=== PATIENT | male | born 1985 | race Caucasian/White ===

== ENCOUNTER 2016-10-11 02:45 | Emergency (ER) | payer OTHER ==
[~2016-10-11 02:45] MED LIST: MTH10T PO; SULF1TAB7 PO
[2016-10-11 03:02] VITALS: BP 129/83; PULSE 99; RESP 16; O2SAT 98
--- NOTE | 2016-10-11 03:08 | ED.REPORT ---
HPI-General Illness Date of Service Oct 11, 2016 ED Provider: Artis Gonzalez MD Patient is a 30 year old male with a history of IV polysubstance abuse who presents to the ED desiring to detox from heroin after last using 4-5 hours prior to arrival. Patient presents to the ED tonight requesting Suboxone. The patient has an appointment with Dr. Huerta at [facility] to start outpatient Suboxone treatment on October 20.The patient states that he is mostly uses IV heroin, but that he sometimes used IV methamphetamine. He had not used methamphetamine in several days. Patient denies any withdrawal symptoms at this time. He denies a fever, drug injection abscesses, or a history of endocarditis. He is currently homeless. Nursing Notes Stated Complaint: OPIATE METH WITHDRAWAL Chief Complaint: General Complaint Nursing Notes Reviewed: Yes Allergies: Coded Allergies: No Known Allergies (Verified , 01/05/16) Scheduled Buprenorphine HCl/Naloxone HCl (Suboxone 8 mg-2 mg Sl Film) 1 Each Film 1 EACH SL BID Methadone (Methadone) 10 Mg Tab 10 MG PO DAILY Sulfamethoxazole/Trimeth 800-160 mg (Bactrim DS) 1 Each Tablet 1 TABLET PO BID General Time Seen by MD: 02:49 Chief Complaint Other (heroin withdrawal) Hx Obtained From: Patient Arrived By: Walk-in Sudden in Onset?: No Onset Occurred: 1 - 4 hours ago Symptom Duration: Since onset Severity: Current: No pain currently Severity: Maximum: No pain Recent Healthcare: No recent doctor visit, No recent hospitalization Similar Sx Previous: Yes Past Medical History Past Medical History Hepatitis C Anxiety Reports: Depression Past Surgical History arm abscess Reports: Appendectomy Family History Noncontributory Smoking History Current Every Day Smoker Social History Alcohol Use: Denies alcohol use Drug Use: IV drugs, Meth, Other Other Social History: Local resident, Homeless Ambulatory Status Independent Review of Systems - denies any withdrawal symptoms Full Review of Systems Constitutional: Denies: Chills, Fever Skin: Denies Rash, Denies Swelling Complete sys rev & neg: except as marked. Physical Exam Vital Signs Vital Signs Date Time Temp Pulse Resp B/P Pulse Ox O2 Delivery O2 Flow Rate FiO2 10/11/16 03:48 99 16 129/83 98 Room Air 10/11/16 03:02 99 16 129/83 98 Room Air Initial VS: Reviewed, Vital signs normal Extremities: Vascular intact, Neuro intact Neurologic: Alert, Oriented, Nonfocal Psychiatric: Mood/affect normal, Behavior normal, Normal thought content General/Constitutional: Awake, Alert, No acute distress thin Head / Eyes: Normocephalic, PERRL, EOMI ENT: Airway patent Neck: Supple, Full range of motion Respiratory / Chest: Breath sounds NL, Breath sounds = bilat, No respiratory distress, No rales, No rhonchi, No wheezing Cardiovascular: Heart rate NL, Regular rhythm, Heart sounds NL, No murmurs Skin: Warm, Dry Rash / Lesion Notes: no abscesses Rash / Lesion Pattern: Positive: Track pinto Re-Eval/Medical Decision Med Decision/Clinical Course 30-year-old male who is well-known to me from visits related to his opioid addiction. He has an upcoming appointment for Suboxone at [facility], but would like to get started on Suboxone now with a prescription to bridge until that appointment. Suboxone 8/to film or strip, 1 sublingual twice a day, #20 prescription written. Source of Hx: Old records Time of Eval: 03:20 Patient Status: Condition improved Re-Evaluation/Progress Note: Patient understands and agrees with the plan to be discharged home. He will be given a Suboxone taper to hold him over until his appointment on Oct 20. Discharge instructions and follow-up discussed. All questions were addressed. Return to the ED warnings given. Counseled Regarding: Diagnosis, Need for follow-up, When/why to return to ED Discharge & Departure Primary Impression: Opioid dependence with withdrawal Disposition: Home Discharge Condition All VS Reviewed: Yes Condition: Stable Patient Instructions: Buprenorphine/Naloxone (By mouth) Additional Instructions: Wait a full 24 hours after your last dose of heroin to start Suboxone 8/2 film or tablet, one dissolved under the tongue twice daily, #20 dispensed. Keep your appointment at [facility] to get started in an outpatient Suboxone program. Do not use heroin or meth. Scribe Attestation Portions of this note were transcribed by Esme Peralta. I, Dr. Gonzalez, personally performed the history, physical exam and medical decision-making; I reviewed and confirmed the accuracy of the information in the transcribed note. Signed by: Julia Vann, 10/11/2016 0335 Artis Gonzalez MD Oct 11, 2016 03:08 Esme Peralta Oct 11, 2016 03:12
[2016-10-11] MEDS ORDERED: BUPR1FIL3 SL (03:36)
[2016-10-11 03:48] VITALS: BP 129/83; PULSE 99; RESP 16; O2SAT 98
== END 2016-10-11 03:49 | disposition home or self-care (01) ==
LOC: SED 02:45
DX: F11.23 Opioid dependence with withdrawal (principal); F17.200 Nicotine dependence, unspecified, uncomplicated

== ENCOUNTER 2016-11-15 01:28 | Emergency (ER) | payer OTHER ==
[~2016-11-15] VITALS: Ht 182.9 cm; Wt 63.6 kg
[~2016-11-15 01:28] MED LIST changes: +BUPR1FIL3 SL
[2016-11-15 01:30] VITALS: BP 140/90; PULSE 130; RESP 16; O2SAT 100
--- NOTE | 2016-11-15 01:42 | ED.REPORT ---
HPI-General Illness Date of Service Nov 15, 2016 ED Provider: Artis Gonzalez MD Patient is a 30 year old male with a history of IV polysubstance abuse who presents to the ED requesting Suboxone after last using IV heroin within the last 24 hours. He admits to using occasional methamphetamine as well. Patient denies any withdrawal symptoms at this time. Patient was previously seen in the ED on 10/11/2016 for this complaint and was prescribed a Suboxone taper. He had plans to enter the Suboxone program through [facility] ([facility]). He reports being sober briefly since his last ED visit, but started using again. He has a counselor at [facility] who is currently trying to get him into an inpatient treatment program at [facility]. The patient has an appointment to see Dr. Huerta on November 28 at [facility] and he goes to [facility]. He states that he currently has enough money saved up to pay Suboxone. He recently had a place to stay, but he is now back on the streets. Patient admits that he has recently lost a large amount of weight. He reports having an upper respiratory infection for the past 2 weeks, with nasal congestion and a cough. Nursing Notes Stated Complaint: SUBSTANCE ABUSE Chief Complaint: Substance Abuse Nursing Notes Reviewed: Yes Allergies: Coded Allergies: No Known Allergies (Verified , 11/15/16) Scheduled Buprenorphine HCl/Naloxone HCl (Suboxone 8 mg-2 mg Sl Film) 1 Each Film 1 EACH SL BID Buprenorphine HCl/Naloxone HCl (Suboxone 8 mg-2 mg Sl Film) 1 Each Film 1 EACH SL DAILY Methadone (Methadone) 10 Mg Tab 10 MG PO DAILY Sulfamethoxazole/Trimeth 800-160 mg (Bactrim DS) 1 Each Tablet 1 TABLET PO BID General Time Seen by MD: 01:42 Chief Complaint Other Hx Obtained From: Patient Arrived By: Walk-in Sudden in Onset?: No Onset Occurred: 5 - 8 hours ago Symptom Duration: Since onset Severity: Current: No pain currently Severity: Maximum: No pain Recent Healthcare: Recent doctor visit Similar Sx Previous: Yes Past Medical History Past Medical History Hepatitis C Anxiety Reports: Depression Past Surgical History arm abscess Reports: Appendectomy Family History Noncontributory Smoking History Current Every Day Smoker Social History Alcohol Use: Denies alcohol use Drug Use: IV drugs, Meth, Other Other Social History: Poor social support, Local resident, Homeless Ambulatory Status Independent Review of Systems Full Review of Systems Constitutional: Reports: Recent wt loss, Denies: Fever Ears / Nose / Throat: Reports: Nasal congestion Respiratory: Reports: Non-productive cough GI: Denies: Diarrhea, Vomiting Complete sys rev & neg: except as marked. Physical Exam Vital Signs Vital Signs Date Time Temp Pulse Resp B/P Pulse Ox O2 Delivery O2 Flow Rate FiO2 11/15/16 02:39 36.2 130 16 140/90 100 Room Air 11/15/16 01:30 36.2 130 16 140/90 100 Room Air Initial VS: Reviewed, Vital signs abnormal Head / Eyes: Atraumatic, Normocephalic, PERRL ENT: Conjunctiva normal, No scleral icterus Neck: Supple, Full range of motion Skin: Warm, Dry, No cyanosis Neurologic: Alert, Oriented, Nonfocal Psychiatric: Mood/affect normal, Behavior normal, Normal thought content General/Constitutional: Awake, Alert Thin, patient has lost weight since last examined in the ED. No tremulous, no signs of acute withdrawal. Respiratory / Chest: Breath sounds NL, Breath sounds = bilat, No respiratory distress, No rales, No rhonchi, No wheezing Cardiovascular: Heart rate NL, Regular rhythm, Heart sounds NL, No gallop, No murmurs, No rubs Re-Eval/Medical Decision Med Decision/Clinical Course 30-year-old male who is well-known to me because of his history of opioid dependence. He relapsed about 4 months ago. He is currently using heavily and losing weight. He has no historical or clinical findings of infectious process at this time. He is scheduled to start IOP later today and scheduled to see Dr. Huerta on the or to start maintenance buprenorphine. He requested and was given a prescription for Suboxone 04/20 film one daily for 2 weeks, #14 prescription written. He will contact me if there are further difficulties before he gets on outpatient management. Source of Hx: Old records Time of Eval: 02:32 Patient Status: Condition improved Re-Evaluation/Progress Note: Patient understands and agrees with the plan to be discharged. He will be given a prescription for Suboxone. Discharge instructions and follow-up discussed. All questions were addressed. Return to the ED warnings given. Counseled Regarding: Diagnosis, Need for follow-up, When/why to return to ED Discharge & Departure Primary Impression: Opioid dependence with withdrawal Disposition: Home Discharge Condition All VS Reviewed: Yes Condition: Stable Patient Instructions: Buprenorphine/Naloxone (By mouth) Additional Instructions: Buprenorphine/naloxone 8/2 (Suboxone) film, 1 dissolved orally daily, #14 dispensed. Continue your IOP as planned at [facility]. Follow -up with Dr. Huerta as planned. Continue attempts to get into inpatient treatment at [facility]. Referrals: [facility] (PCP) Scribe Attestation Portions of this note were transcribed by Esme Peralta. I, Dr. Gonzalez personally performed the history, physical exam and medical decision-making; I reviewed and confirmed the accuracy of the information in the transcribed note. Signed by: Julia Vann, 11/15/2016 0319 copies to: [facility] Artis Gonzalez MD Nov 15, 2016 01:42 Esme Peralta Nov 15, 2016 01:56
[2016-11-15] MEDS ORDERED: BUPR1FIL3 SL (02:33)
[2016-11-15 02:39] VITALS: BP 140/90; PULSE 130; RESP 16; O2SAT 100
== END 2016-11-15 02:40 | disposition home or self-care (01) ==
LOC: SED 01:28
DX: F11.23 Opioid dependence with withdrawal (principal); J06.9 Acute upper respiratory infection, unspecified; R63.4 Abnormal weight loss; F19.20 Other psychoactive substance dependence, uncomplicated; F17.200 Nicotine dependence, unspecified, uncomplicated; Z59.0 Homelessness

== ENCOUNTER 2016-11-20 22:30 | Emergency (ER) | payer OTHER ==
[~2016-11-20] VITALS: Ht 182.9 cm; Wt 61.4 kg
[2016-11-20 22:32] VITALS: BP 126/77; PULSE 127; RESP 16; O2SAT 100
--- NOTE | 2016-11-20 22:43 | ED.REPORT ---
HPI-General Illness Date of Service Nov 20, 2016 ED Provider: Doc,Ed MD Nursing Notes Stated Complaint: HIGH PULSE Chief Complaint: General Complaint Allergies: Coded Allergies: No Known Allergies (Verified , 11/20/16) Scheduled Buprenorphine HCl/Naloxone HCl (Suboxone 8 mg-2 mg Sl Film) 1 Each Film 1 EACH SL BID Buprenorphine HCl/Naloxone HCl (Suboxone 8 mg-2 mg Sl Film) 1 Each Film 1 EACH SL DAILY Methadone (Methadone) 10 Mg Tab 10 MG PO DAILY Sulfamethoxazole/Trimeth 800-160 mg (Bactrim DS) 1 Each Tablet 1 TABLET PO BID General Time Seen by MD: 22:42 Past Medical History Past Medical History Hepatitis C Anxiety Reports: Depression Past Surgical History arm abscess Reports: Appendectomy Family History Noncontributory Smoking History Current Every Day Smoker Social History Alcohol Use: Denies alcohol use Drug Use: IV drugs, Meth, Other Other Social History: Poor social support, Local resident, Homeless Ambulatory Status Independent Physical Exam Vital Signs Vital Signs Date Time Temp Pulse Resp B/P Pulse Ox O2 Delivery O2 Flow Rate FiO2 11/20/16 22:32 36.6 127 16 126/77 100 Room Air Discharge & Departure Referrals: [facility] (PCP) Keshawn Brower DO Nov 20, 2016 22:42
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
[2016-11-20] MEDS ORDERED: LORazepam 1 mg Tablet PO ONE (23:35)
[2016-11-20 23:51] VITALS: BP 112/69; PULSE 120; RESP 21; O2SAT 99
[2016-11-21 01:26] VITALS: BP 116/70; PULSE 100; RESP 18; O2SAT 98
== END 2016-11-21 01:44 | disposition home or self-care (01) ==
LOC: SED 22:30
DX: R00.0 Tachycardia, unspecified (principal); F11.23 Opioid dependence with withdrawal; F15.10 Other stimulant abuse, uncomplicated; F17.200 Nicotine dependence, unspecified, uncomplicated; Z59.0 Homelessness

== ENCOUNTER 2017-03-07 18:44 | Emergency (ER) | payer OTHER ==
[~2017-03-07] VITALS: Ht 182.9 cm; Wt 65.9 kg
[2017-03-07 18:58] VITALS: BP 111/73; PULSE 89; RESP 16; O2SAT 98
== END 2017-03-07 19:04 | disposition left against medical advice (07) ==
LOC: SED 18:44
DX: Z53.21 Procedure and treatment not carried out due to patient leaving prior to being seen by health care provider (principal)

== ENCOUNTER 2017-06-05 02:04 | Emergency (ER) | payer OTHER ==
[~2017-06-05] VITALS: Ht 182.9 cm; Wt 65.9 kg
[2017-06-05 02:21] VITALS: BP 123/83; PULSE 68; RESP 20; O2SAT 100
--- NOTE | 2017-06-05 02:37 | ED.REPORT ---
HPI-General Illness Date of Service Jun 05, 2017 ED Provider: Keshawn Brower DO The pt is a 31 y/o male w/ a hx of hepatitis C, methamphetamine abuse and heroin abuse presenting to the ED due to withdrawal symptoms. He is currently experiencing abdominal pain, shakiness, and has not slept in 4 days. The pt usually injects the drugs and has been using for ten years now. Denies nausea currently but the pt expects to become nauseated soon. Nursing Notes Stated Complaint: OPIATE WITHDRAWAL Chief Complaint: Withdrawal symptoms Nursing Notes Reviewed: Yes Allergies: Coded Allergies: No Known Allergies (Verified , 03/07/17) Scheduled Buprenorphine HCl/Naloxone HCl (Suboxone 8 mg-2 mg Sl Film) 1 Each Film 1 EACH SL BID Buprenorphine HCl/Naloxone HCl (Suboxone 8 mg-2 mg Sl Film) 1 Each Film 1 EACH SL DAILY Methadone (Methadone) 10 Mg Tab 10 MG PO DAILY Sulfamethoxazole/Trimeth 800-160 mg (Bactrim DS) 1 Each Tablet 1 TABLET PO BID Scheduled PRN Lorazepam (Ativan) 1 Mg Tablet 1 MG PO TID PRN PRN For Anxiety Ondansetron ODT (Zofran ODT) 4 Mg Tablet 4 MG PO Q4H PRN PRN For Nausea General Time Seen by MD: 02:36 Chief Complaint Other (Withdrawal symptoms ) Hx Obtained From: Patient Sudden in Onset?: Yes Onset Occurred: 1 - 4 hours ago Symptom Duration: Since onset Recent Healthcare: No recent doctor visit Similar Sx Previous: Yes Past Medical History Past Medical History Hepatitis C Anxiety Reports: Depression Past Surgical History left arm abscess Reports: Appendectomy Family History Noncontributory Smoking History Current Every Day Smoker Social History Alcohol Use: Denies alcohol use Drug Use: IV drugs, Meth, Other Other Social History: Poor social support, Local resident, Homeless Ambulatory Status Independent Review of Systems Full Review of Systems GI: Denies: Abdominal pain, Nausea Neurologic: Denies: Shaking Complete sys rev & neg: except as marked. Physical Exam Vital Signs Vital Signs Date Time Temp Pulse Resp B/P Pulse Ox O2 Delivery O2 Flow Rate FiO2 06/05/17 05:45 36.5 87 14 103/64 100 Room Air 06/05/17 02:21 36.5 68 20 123/83 100 Room Air Initial VS: Reviewed Head / Eyes: Atraumatic, Normocephalic, PERRL ENT: Mucous membranes moist, Conjunctiva normal, No scleral icterus Neck: Supple, Non-tender, Full range of motion Respiratory: Breath sounds normal, Clear to auscultation, No respiratory distress Cardiovascular: Regular rate & rhythm, Heart sounds normal, Intact distal pulses Skin: Warm, Dry, No cyanosis Neurologic: Alert, Oriented, Nonfocal Psychiatric: Mood/affect normal, Behavior normal, Normal thought content General/Constitutional: Awake, Alert Behavior: Positive: Anxious Re-Eval/Medical Decision Med Decision/Clinical Course 31-year-old male with extensive IV drug use history of presenting with the desire to get help and symptom relief with withdrawal symptoms. He was prescribed Ativan and Zofran today and discharged to follow up with [facility] and [facility] for treatment of his hepatitis C/other medical care Source of Hx: Old records Counseled Regarding: Diagnosis, Lab results, Need for follow-up, When/why to return to ED Discharge & Departure Primary Impression: Opioid dependence Substance use status: in withdrawal Qualified Code: F11.23 - Opioid dependence with withdrawal Additional Impressions: Methamphetamine abuse IV drug abuse Hepatitis C Viral hepatitis chronicity: unspecified Hepatic coma status: without hepatic coma Qualified Code: B19.20 - Unspecified viral hepatitis C without hepatic coma Disposition: Home Discharge Condition All VS Reviewed: Yes Condition: Stable Patient Instructions: Methamphetamine Abuse (ED), Narcotic Abuse (ED) Additional Instructions: Thank for you entrusting us with your care today. Please follow up with [facility] and [facility] for further treatment and take the medications as prescribed. Use Ativan as needed for anxiety, and Zofran as needed for nausea. Please return to the emergency department if you experience any new or worsening symptoms. I hope you feel better soon. Referrals: [facility] (PCP) [facility] Scribe Attestation Portions of this note were transcribed by Jone Melendrez. I, Dr. Brower personally performed the history, physical exam and medical decision-making; I reviewed and confirmed the accuracy of the information in the transcribed note. copies to: [facility] Keshawn Brower DO Jun 05, 2017 02:37 Jone Melendrez Jun 05, 2017 03:14
[2017-06-05] MEDS ORDERED: LORazepam 1 mg Tablet PO ONE (03:10)
[2017-06-05] MEDS ORDERED: LORA-303 PO (03:21)
[2017-06-05] MEDS ORDERED: ONDA4TAB9 PO (03:21)
[2017-06-05 05:45] VITALS: BP 103/64; PULSE 87; RESP 14; O2SAT 100
== END 2017-06-05 05:46 | disposition home or self-care (01) ==
LOC: SED 02:04
DX: F11.23 Opioid dependence with withdrawal (principal); F15.10 Other stimulant abuse, uncomplicated; B19.20 Unspecified viral hepatitis C without hepatic coma; R25.1 Tremor, unspecified; R10.9 Unspecified abdominal pain; F41.8 Other specified anxiety disorders; F17.200 Nicotine dependence, unspecified, uncomplicated; Z72.820 Sleep deprivation; Z98.890 Other specified postprocedural states

== ENCOUNTER 2017-06-09 08:15 | Emergency (ER) | payer OTHER ==
[~2017-06-09] VITALS: Ht 182.9 cm; Wt 65.9 kg
[~2017-06-09 08:15] MED LIST changes: +LORA-303 PO; +ONDA4TAB9 PO
[2017-06-09 08:23] VITALS: BP 123/76; PULSE 94; RESP 12; O2SAT 100
--- NOTE | 2017-06-09 08:33 | ED.REPORT ---
HPI-Extremity Problem Upper Date of Service Jun 09, 2017 ED Provider: Vadim Lucero Patient is a 31 year old male who presents to the ED complaining of R elbow pain s/p falling last night. Associated symptoms include swelling and decreased ROM. He denies numbness, tingling, headache, neck pain, back pain, or any other symptoms. Nursing Notes Stated Complaint: R ELBOW PAIN Chief Complaint: Extremity Trauma Nursing Notes Reviewed: Yes Allergies: Coded Allergies: No Known Allergies (Verified , 03/07/17) Scheduled PRN Ibuprofen (Ibuprofen) 800 Mg Tablet 800 MG PO TID PRN PRN For Pain General Time Seen by MD: 08:33 Chief Complaint Elbow injury right Hx Obtained From: Patient Arrived By: Walk-in Onset Occurred: Yesterday Symptom Duration: Since onset Caused by: Fall on ground Location: : Elbow right Quality: Painful Severity: Current: Moderate Severity: Maximum: Moderate Associated with: Reports: Joint swelling Pertinent Negative: Pt denies other symptoms Exacerbated by: Range of motion Immunizations: Unknown Past Medical History Past Medical History Hepatitis C Anxiety Scoliosis PTSD Reports: Depression Past Surgical History left arm abscess Reports: Appendectomy Family History Noncontributory Smoking History Current Every Day Smoker Social History Heroin use Self-mutilation and previous suicide attempt Alcohol Use: Denies alcohol use Drug Use: IV drugs, Meth, Other Other Social History: Poor social support, Local resident, Homeless Ambulatory Status Independent Review of Systems Review of Systems Note: +decreased ROM -tingling Musculoskeletal: Reports: Joint pain, Joint swelling, Denies: Back pain, Neck pain Neurologic: Denies: Headache, Numbness Complete sys rev & neg: except as marked. Physical Exam Initial Vital Signs Vital Signs (First) Date Time Temp Pulse Resp B/P Pulse Ox O2 Delivery O2 Flow Rate FiO2 06/09/17 08:23 36.3 94 12 123/76 100 Room Air Initial VS: Reviewed, Vital signs normal Head / Eyes: Atraumatic, Normocephalic Neck: Supple, Full range of motion Respiratory: No respiratory distress Cardiovascular: Intact distal pulses Skin: Warm, Dry Neurologic: Alert, Oriented, Nonfocal Psychiatric: Mood/affect normal, Behavior normal, Normal thought content General/Constitutional: Awake, Alert Upper Extremity / MS: Neurologic intact, Vascular intact Swelling at olecranon limited ROM Re-Eval/Medical Decision Re-Evaluation/Progress : Time of Eval: 09:33 Re-Evaluation/Progress Note: Discussed imaging results and plan for discharge. Patient understands and agrees with plan. All questions addressed at this time. Counseled Regarding: Diagnosis, Lab results, Need for follow-up, When/why to return to ED Discharge & Departure Impression: Primary Impression: Olecranon bursitis, right elbow Disposition: Home Discharge Condition All VS Reviewed: Yes Condition: Stable Additional Instructions: You have inflamed the bursa at your elbow from the fall. No fractures are identified. Use ibuprofen for pain. Follow-up with the primary care doctor as needed if worse. Referrals: Queta Campos Attestation Portions of this note were transcribed by Pelon Kirkland. I, Dr. Lucero personally performed the history, physical exam and medical decision-making; I reviewed and confirmed the accuracy of the information in the transcribed note. Signed by: Julia Juarez, 06/09/17 copies to: Queta Campos Timothy S DO Jun 09, 2017 08:33 PELON KIRKLAND Jun 09, 2017 08:39
--- NOTE | 2017-06-09 09:22 | DRSVH ---
PROCEDURE: X-RAY RIGHT ELBOW COMPLETE, MINIMUM THREE VIEWS ([id number]) INDICATIONS: trauma TECHNIQUE: 3 views of the elbow were acquired. COMPARISON: [facility], , ELBOW COMP MIN 3VW (RT), 05/21/2012, 22:56. FINDINGS: Bones: No fractures or dislocations. No suspicious bony lesions. Soft tissues: No elbow joint effusion. No suspicious soft tissue calcifications. Soft tissue swelli ng overlies the olecranon process. IMPRESSION: Soft tissue swelling. No underlying bony injury. If acute pain persists, repeat study is recommended in 5-7 days to exclude occult fracture at the time of the study. Dictated by: Martha Ochoa M.D. on 06/09/2017 at 8:19 Approved by: Martha Ochoa M.D. on 06/09/2017 at 8:20
[2017-06-09] MEDS ORDERED: IBUP800T28 PO (09:29)
[2017-06-09 09:38] VITALS: BP 118/70; PULSE 87; RESP 14; O2SAT 100
== END 2017-06-09 09:39 | disposition home or self-care (01) ==
LOC: SED 08:15
DX: M70.21 Olecranon bursitis, right elbow (principal); W18.39XA Other fall on same level, initial encounter; Y93.9 Activity, unspecified; Y92.9 Unspecified place or not applicable; Y99.8 Other external cause status; F43.10 Post-traumatic stress disorder, unspecified; F17.200 Nicotine dependence, unspecified, uncomplicated
CPT/HCPCS: 73080; 96372; 99284; J1885

== ENCOUNTER 2017-06-10 12:16 | Emergency (ER) | payer OTHER ==
[~2017-06-10] VITALS: Ht 182.9 cm; Wt 65.9 kg
[~2017-06-10 12:16] MED LIST changes: -BUPR1FIL3 SL; +IBUP800T28 PO; -LORA-303 PO; -MTH10T PO; -ONDA4TAB9 PO; -SULF1TAB7 PO
[2017-06-10 12:22] VITALS: BP 102/70; PULSE 77; RESP 18; O2SAT 97
--- NOTE | 2017-06-10 13:03 | ED.REPORT ---
HPI-Extremity Problem Upper Date of Service Jun 10, 2017 ED Provider: Son Paz MD History of Present Illness: was coloring yesterday and was coloring on concrete, irritated elbow. no primary care. last use 6 am today. Nursing Notes Stated Complaint: RT ELBOW PAIN Chief Complaint: Extremity Trauma Allergies: Coded Allergies: No Known Allergies (Verified , 06/10/17) Scheduled PRN Ibuprofen (Ibuprofen) 800 Mg Tablet 800 MG PO TID PRN PRN For Pain General Time Seen by MD: 12:44 Hx Obtained From: Patient Past Medical History Past Medical History Hepatitis C Anxiety Scoliosis PTSD Reports: Depression Past Surgical History left arm abscess Reports: Appendectomy Family History Noncontributory Smoking History Current Every Day Smoker Social History Heroin use Self-mutilation and previous suicide attempt Alcohol Use: Denies alcohol use Drug Use: IV drugs, Meth, Other Other Social History: Poor social support, Local resident, Homeless Occupation stays at mom;s house. no work or school 06/10/2017 Ambulatory Status Independent Physical Exam Initial Vital Signs Vital Signs (First) Date Time Temp Pulse Resp B/P Pulse Ox O2 Delivery O2 Flow Rate FiO2 06/10/17 12:22 37.3 77 18 102/70 97 Room Air Discharge & Departure Referrals: NOPCP (PCP) Son Paz MD Jun 10, 2017 13:03 Lavinia Colin Jun 10, 2017 13:31
[2017-06-10] MEDS ORDERED: Trimethoprim-Sulfa 160 mg-800 mg Tablet PO ONE (13:40)
[2017-06-10 13:58] LABS: BASOPHILS % (AUTO) 0.3 % (0-3); EOSINOPHILS % (AUTO) 3.7 % (0-5); Mean Corpuscular Hemoglobin 30.4 pg (27.0-35.0); Mean Corpuscular Volume 89.3 fL (81-100); NEUTROPHILS % (AUTO) 60.3 % (40-74); Platelet Count 138 bil/L (150-400)
--- NOTE | 2017-06-10 15:17 | ED.REPORT ---
HPI-Extremity Problem Upper Date of Service Jun 10, 2017 ED Provider: Lavinia Colin History of Present Illness: Seen yesterday for right elbow pain. Patient is sleeping on entrance into room but wakes . States was using chalk on concrete and made the elbow worse last night. Last used heroin this am at 6. Nursing Notes Stated Complaint: RT ELBOW PAIN Chief Complaint: Extremity Trauma Nursing Notes Reviewed: Yes Allergies: Coded Allergies: No Known Allergies (Verified , 06/10/17) Scheduled PRN Ibuprofen (Ibuprofen) 800 Mg Tablet 800 MG PO TID PRN PRN For Pain General Time Seen by MD: 13:28 Chief Complaint Elbow injury right Hx Obtained From: Patient Onset Occurred: 3 days ago Past Medical History Past Medical History Hepatitis C Anxiety Scoliosis PTSD Reports: Depression Past Surgical History left arm abscess Reports: Appendectomy Family History Noncontributory Smoking History Current Every Day Smoker Social History Heroin use Self-mutilation and previous suicide attempt Alcohol Use: Denies alcohol use Drug Use: IV drugs, Meth, Other Other Social History: Poor social support, Local resident, Homeless Occupation stays at mom;s house. no work or school 06/10/2017 Ambulatory Status Independent Review of Systems Basic Review of Systems Eyes: Vision NL, No discharge : No dysuria, No frequency Psychiatric: Normal thought content Physical Exam Initial Vital Signs Vital Signs (First) Date Time Temp Pulse Resp B/P Pulse Ox O2 Delivery O2 Flow Rate FiO2 06/10/17 12:22 37.3 77 18 102/70 97 Room Air Initial VS: Reviewed, Vital signs normal General/Constitutional: Well-developed, Well-nourished Head / Eyes: Atraumatic, Normocephalic, PERRL ENT: Mucous membranes moist, Conjunctiva normal, No scleral icterus Neck: Supple, Non-tender, Full range of motion Respiratory: Breath sounds normal, Clear to auscultation, No respiratory distress Cardiovascular: Regular rate & rhythm, Heart sounds normal, Intact distal pulses Abdomen / GI: Soft, Non-tender, No guarding, No rebound, No distention Back: No CVA tenderness Lymphatic: No lymphadenopathy Lower Extremities: Vascular intact, Neuro intact, No swelling, No tenderness Skin: Warm, Dry, No cyanosis Neurologic: Alert, Oriented, Nonfocal Psychiatric: Mood/affect normal, Behavior normal, Normal thought content General/Constitutional: Awake Alertness: Positive: Sleeping but arousable Behavior: Positive: Appears intoxicated (drug use) Neck: Supple, No adenopathy Respiratory / Chest: Atraumatic, Breath sounds NL, Breath sounds = bilat, No respiratory distress Cardiovascular: Heart rate NL, Regular rhythm, Heart sounds NL, No gallop elbow has moderate swelling with erthyma. Swelling decreases greatly with ice and toradol. Patient with full range of motion but with tenderness Interpretation & Diagnostics Lab Results Interpretation Result Diagram: 06/10/17 1350 06/10/17 1350 Test 06/10/17 13:50 06/10/17 14:10 White Blood Count 10.9th/mm3 (3.8-10.1) Red Blood Count 3.55mil/mm3 (4.40-5.80) Hemoglobin 10.8g/dL (13.8-17.2) Hematocrit 31.7% (41.0-50.0) Mean Corpuscular Volume 89.3fL (81-100) Mean Corpuscular Hemoglobin 30.4pg (27.0-35.0) Mean Corpuscular Hemoglobin Concent 34.1% (32.0-37.0) Red Cell Distribution Width 15.1% (12.3-15.4) Platelet Count 138bil/L (150-400) Neutrophils (%) (Auto) 60.3% (40-74) Lymphocytes (%) (Auto) 21.6% (14-46) Monocytes (%) (Auto) 14.0% (4-12) Eosinophils (%) (Auto) 3.7% (0-5) Basophils (%) (Auto) 0.3% (0-3) Sodium Level 137mEq/L (134-144) Potassium Level 4.0mEq/L (3.5-5.2) Chloride Level 100mEq/L (97-108) Carbon Dioxide Level 26mmol/L (18-29) Blood Urea Nitrogen 19mg/dL (6-20) Creatinine 0.60mg/dL (0.76-1.27) Estimat Glomerular Filtration Rate 167mL/min (>59) Glucose Level 91mg/dL (60-99) Calcium Level 8.3mg/dL (8.5-10.1) Total Bilirubin 1.3mg/dL (0.0-1.2) Aspartate Amino Transf (AST/SGOT) 45U/L (0-50) Alanine Aminotransferase (ALT/SGPT) 60U/L (0-44) Alkaline Phosphatase 73U/L (25-150) Total Protein 6.0g/dL (6.4-8.4) Albumin 3.7g/dL (3.4-5.0) Hold [place] Top Tube Received (Received) Re-Eval/Medical Decision Med Decision/Clinical Course 31 year old male presents for re evualation of right elbow. Patient was dx with bursitis yesterday. Agree with evualation. Patient provided bactrim for possible early cellulitis. Discussed with patient trying treatment at [facility], given card. Unsure if he will pursue. No sign of compartment syndrome or fracture. Discussed with Dr. Paz, with active heroin use, rx opiates not indicated at this time. Discharge & Departure Impression: Primary Impression: Olecranon bursitis, right elbow Additional Impression: Opioid dependence Disposition: Home Patient Instructions: Elbow Bursitis (ED), Elbow Bursitis Exercises (GEN) Additional Instructions: Your labs show a mild elevation in white count. You have been started on antibiotics, bactrim in the am and pm for 7 days. Continue with ice 15 minutes on and 15 minutes off. Use ketorolac 10 mg up to 4 times a day as needed for swelling and discomfort. Please consider [facility]. Need to establish in primary care, consider the residency clinic. Use the sling that you have to let your elbow rest. Referrals: [facility] EDSupervising Provider for APC: Son Paz MD copies to: [facility] Lavinia Colin Jun 10, 2017 15:17
[2017-06-10 15:31] VITALS: BP_SYST 102; PULSE 92; RESP 15; O2SAT 98
[2017-06-10 15:32] VITALS: BP_SYST 102; PULSE 92; RESP 15; O2SAT 98
== END 2017-06-10 15:32 | disposition home or self-care (01) ==
LOC: SED 12:16
DX: M70.21 Olecranon bursitis, right elbow (principal); F11.20 Opioid dependence, uncomplicated; F41.8 Other specified anxiety disorders; F17.200 Nicotine dependence, unspecified, uncomplicated; Z90.89 Acquired absence of other organs; Z59.0 Homelessness
CPT/HCPCS: 36415; 80053; 85025; 96372; 99284; J1885